=== PATIENT | male | born 1975 | race Caucasian/White ===

== ENCOUNTER 2019-05-31 13:16 | Emergency (ER) | payer SELFPAY ==
[2019-05-31 14:10] VITALS: BP 113/69
[2019-05-31] MEDS ORDERED: LIDOCAINE (1%) 10 MG/1 ML VIAL 20 ML MDV INFILTRATI ONE ×2 (15:35→15:36)
[2019-05-31] MEDS ORDERED: IBUPROFEN 800 MG TAB PO ONE (15:36)
--- NOTE | 2019-05-31 16:58 | Emergency Department Report ---
Abscess Boil HPI - HPI Chief Complaint: Skin/Abscess/Foreign Body Stated Complaint: BOIL ON BACK Time Seen by Provider: 05/31/19 15:23 Duration: >1 Week Location: Back Severity: Moderate History: Yes Pain, No Fever, No Purulent Drainage, No Numbness, No Foreign Body, No Previous History, No Insect Bite Home Medications: Previous Rx's Medication Instructions Recorded Last Taken Type Ibuprofen [Motrin 600 MG tab] 600 mg PO Q8H PRN #20 tablet 05/31/19 Unknown Rx Sulfamethoxazole/Trimethoprim 1 each PO BID #20 tablet 05/31/19 Unknown Rx [Bactrim DS TAB] traMADol [Ultram] 50 mg PO Q6HR PRN #12 tablet 05/31/19 Unknown Rx Allergies/Adverse Reactions: Allergies Allergy/AdvReac Type Severity Reaction Status Date / Time No Known Allergies Allergy Unverified 06/18/15 07:34 ED Review of Systems ROS: Stated complaint: BOIL ON BACK Other details as noted in HPI Comment: All other systems reviewed and negative ED Past Medical Hx - Past Medical History Previous Medical History?: No - Surgical History Past Surgical History?: No - Social History Smoking Status: Never Smoker Substance Use Type: None - Medications Home Medications: Home Medications Medication Instructions Recorded Confirmed Last Taken Type Ibuprofen [Motrin 600 MG tab] 600 mg PO Q8H PRN #20 tablet 05/31/19 Unknown Rx Sulfamethoxazole/Trimethoprim 1 each PO BID #20 tablet 05/31/19 Unknown Rx [Bactrim DS TAB] traMADol [Ultram] 50 mg PO Q6HR PRN #12 tablet 05/31/19 Unknown Rx ED Abscess Boil Physical Exam - Exam General: Vital signs noted. No distress. Alert and acting appropriately. Front/Back of Body, Lg (Color): 1 - Large abscess Size: 2 cm Exam: Yes Tenderness, Yes Fluctuance, Yes Surrounding Cellulites/Erythema, Yes Normal Neurologic Exam, Yes Normal Circulation, No Lymphangitis, No Crepitation, No Heart Murmur I & D Note - I & D Note I & D Note: Area was cleaned with Betadine. The type of abscess was infused with 1% lidocaine. Small puncture was made to release pressure. No further numb the area with lidocaine and was deeper. Patient did have good anesthesia during the procedure. Copious amounts of thick purulent material was expressed. The wound was probed with forceps to break up loculations. Wound was irrigated with normal saline and packed without gauze. Patient tolerated procedure well ED Course Vital Signs 05/31/19 14:09 Temperature 97.6 F Pulse Rate 79 Respiratory 16 Rate Blood Pressure 113/69 O2 Sat by Pulse 100 Oximetry Critical care attestation.: If time is entered above; I have spent that time in minutes in the direct care of this critically ill patient, excluding procedure time. ED Disposition Clinical Impression: Abscess Disposition: DC-01 TO HOME OR SELFCARE Is pt being admited?: No Does the pt Need Aspirin: No Condition: Stable Instructions: Abscess Incision and Drainage (ED), Abscess (ED) Additional Instructions: Please see [facility] or [facility] in 3 days for a wound recheck and to have packing removed Referrals: [facility] [Outside] - 3-5 Days [facility] HAYES MD [Referring] - 3-5 Days Time of Disposition: 16:57
== END 2019-05-31 17:25 | disposition home or self-care (01) ==
LOC: ED 13:16
DX: L02.212 Cutaneous abscess of back [any part, except buttock and flank] (principal)